=== PATIENT | male | born 1995 | race Caucasian/White ===

== ENCOUNTER 2021-04-17 03:35 | Emergency (ER) | payer SELFPAY ==
[~2021-04-17] VITALS: Ht 165.1 cm; Wt 86.2 kg
[2021-04-17 03:40] VITALS: BP 125/83
--- NOTE | 2021-04-17 03:40 | NUR ---
[place] 25 Y/O [place] [address] FOR C/O FETANYL OVERDOSE. PATIENT FOUND DOWN IN FRONT OF HOTEL LOBBY. PER EMS PATIENT ADMITED TO TAKING ALCOHOL AND SWALLOWING A FENTANYL PILL. PATIENT STATES DOES NOT REMEMBER HOW HE ARRIVED TO [facility]. PATIENT PRESENTS LETHARGIC BUT ORIENTED X 4. PATIENT PLACED ON CARIDAC MONITOR. BED IS LOCKED AND IN LOWEST POSITION. MEDHX: DENIES NKA
--- NOTE | 2021-04-17 03:40 | NUR ---
PT LOIS ALS. TAKEN TO BED 9
--- NOTE | 2021-04-17 03:45 | NUR ---
ERMD AT BEDSIDE FOR MEDICAL EVALUATION.
--- NOTE | 2021-04-17 05:16 | NUR ---
Patient appears to be resting comfortably in bed. Vital Signs within normal limits. Respirations even and unlabored.
--- NOTE | 2021-04-17 05:32 | NUR ---
ERMD AT BEDSIDE FOR MEDICAL RE-NIKOLAS. PATIENT RESPONDS TO VERBAL STIMULI. PATIENT REMAINS ON CARDAIC MONITOR. VSS.
--- NOTE | 2021-04-17 07:35 | NUR ---
BUS PASS PROVIDED TO PATIENT
[2021-04-17 07:41] VITALS: BP 97/65
--- NOTE | 2021-04-17 07:41 | NUR ---
Patient discharged with v/s stable. Written and verbal after care instructions given and explained. Patient verbalized understanding. Ambulatory with steady gait. All questions addressed prior to discharge. Advised to follow up with PMD.
== END 2021-04-17 07:41 | disposition home or self-care (01) ==
LOC: MED 03:35
DX: T40.411A Poisoning by fentanyl or fentanyl analogs, accidental (unintentional), initial encounter (principal); Y92.89 Other specified places as the place of occurrence of the external cause
CPT/HCPCS: 99283

== ENCOUNTER 2021-12-09 18:52 | Emergency (ER) | payer SELFPAY ==
[~2021-12-09] VITALS: Ht 177.8 cm; Wt 99.8 kg
[2021-12-09 18:55] VITALS: BP 132/93
--- NOTE | 2021-12-09 18:58 | NUR ---
Pt on [facility] g[facility] pending next available bed.
--- NOTE | 2021-12-09 19:10 | NUR ---
Dr. Schilling is evaluating patient on [facility]
--- NOTE | 2021-12-09 19:16 | NUR ---
BIBA to bed 11
--- NOTE | 2021-12-09 19:26 | NUR ---
Report and transfer of care endorsed to CECELIA Monroy.
[2021-12-09 19:48] LABS: BASOPHILS % (AUTO) 0.3 % (0.0-2.0); EOSINOPHILS # (AUTO) 0.1 K/uL (0-0.4); EOSINOPHILS % (AUTO) 0.6 % (0.0-4.0); HEMATOCRIT 45.4 % (36-52); HEMOGLOBIN 15.3 g/dL (12.0-18.0); LYMPHOCYTES # (AUTO) 1.7 K/uL (2.0-11.5); LYMPHOCYTES % (AUTO) 18.8 % (20.5-51.1); MEAN CORPUSCULAR HEMOGLOBIN 28 pg (27-31); MEAN CORPUSCULAR HGB CONC 34 g/dL (33-37); MEAN CORPUSCULAR VOLUME 82.6 fL (80-94); MONOCYTES # (AUTO) 0.4 K/uL (0.8-1.0); MONOCYTES % (AUTO) 4.1 % (1.7-9.3); NEUTROPHILS # (AUTO) 6.7 K/uL (1.8-7.7); NEUTROPHILS % (AUTO) 76.2 % (42.2-75.2); PLATELET COUNT (AUTO) 311 K/uL (140-450); RED CELL DISTRIBUTION WIDTH 13.1 % (11.6-13.7); WHITE BLOOD COUNT (AUTO) 8.9 K/uL (4.8-10.8)
--- NOTE | 2021-12-09 19:51 | NUR ---
sts unable to urinate at this time.
--- NOTE | 2021-12-09 19:51 | NUR ---
received pt from day shift RN. pt currently a/o x 4 gcs 15. able to move all extremities freely. pt is biba from home s/p fentanyl OD. received 5 of narcan in the field. now fully alert.
[2021-12-09 20:10] LABS: ALBUMIN 3.8 g/dL (3.4-5.0); ANION GAP 13.8 (8-16); ASPARTATE AMINOTRANSFERASE 29 U/L (15-37); CARBON DIOXIDE 26.8 mmol/L (21-32); CHLORIDE 103 mmol/L (98-107); GLUCOSE 164 mg/dL (74-106); POTASSIUM 3.6 mmol/L (3.5-5.1); SODIUM SERUM 140 mmol/L (136-145)
[2021-12-09 20:27] LABS: CREATININE 1.4 mg/dL (0.6-1.3); GFR ARICAN-AMERICAN 79 mL/min (>90); UREA NITROGEN, BLOOD 22 mg/dL (7-18)
[2021-12-09 20:28] LABS: ACETAMINOPHEN < 0.5 ug/ml (10-30); SALICYLATE < 2.8 mg/dL (2.8-20.0)
[2021-12-09] MEDS ORDERED: NALO4SPR NS (22:15)
--- NOTE | 2021-12-10 | NUR ---
d/c with VSS. d/c education given. opportunity to ask questions given and answered. rx of narcan given. IV site removed,bleeding controlled with sterile gauze and reinforced with tape.
[2021-12-10 00:01] VITALS: BP 132/88
== END 2021-12-10 | disposition home or self-care (01) ==
LOC: MED 18:52
DX: T40.411A Poisoning by fentanyl or fentanyl analogs, accidental (unintentional), initial encounter (principal); R41.82 Altered mental status, unspecified; Y92.89 Other specified places as the place of occurrence of the external cause
CPT/HCPCS: 36415; 71045; 80053; 85025; 93005; 99285; G0480; G0482; Q0092